=== PATIENT | female | born 1995 | race Two or more races ===

== ENCOUNTER 2016-10-08 21:02 | Emergency (ER) | payer SELFPAY ==
[~2016-10-08] VITALS: Ht 170.2 cm; Wt 77.1 kg
[2016-10-08 21:08] VITALS: BP 116/78
== END 2016-10-08 21:48 | disposition home or self-care (01) ==
LOC: ER 21:04
DX: S06.0X0A Concussion without loss of consciousness, initial encounter (principal); S40.011A Contusion of right shoulder, initial encounter; V43.62XA Car passenger injured in collision with other type car in traffic accident, initial encounter; Y93.89 Activity, other specified; Y92.488 Other paved roadways as the place of occurrence of the external cause; Y99.8 Other external cause status
CPT/HCPCS: 99283; A4606; Z7610

== ENCOUNTER 2020-11-26 15:05 | Emergency (ER) | payer OTHER ==
[~2020-11-26] VITALS: Ht 167.6 cm; Wt 81.6 kg
[2020-11-26 15:07] VITALS: BP 134/86
--- NOTE | 2020-11-26 15:22 | NUR ---
CALLED DR. MIRANDA [phone] SPEAKING WITH GARRET
[2020-11-26] MEDS ORDERED: MORPHINE SULFATE INJ 2 MG/ML DISP.SYRIN IM ONE (15:30)
[2020-11-26] MEDS ORDERED: ONDANSETRON HCL/PF 4 MG/2 ML VIAL IM ONE (15:30)
[2020-11-26] MEDS ORDERED: ONDANSETRON HCL/PF 4 MG/2 ML VIAL ONE (15:34)
[2020-11-26] MEDS ORDERED: MORPHINE SULFATE INJ 4 MG/ML DISP.SYRIN ONE (15:34)
[2020-11-26] MEDS ORDERED: AMOX/CLAVULANATE 875 MG TABLET PO ONE (16:00)
[2020-11-26] MEDS ORDERED: AMOX/CLAVULANATE 875 MG TABLET ONE (16:18)
== END 2020-11-26 16:32 | disposition home or self-care (01) ==
LOC: ER 15:12
DX: K13.79 Other lesions of oral mucosa (principal)
CPT/HCPCS: 96372 ×2; 99284; J2270; J2405

== ENCOUNTER 2020-12-01 19:58 | Emergency (ER) | payer OTHER ==
[~2020-12-01] VITALS: Ht 167.6 cm; Wt 77.6 kg
[2020-12-01 19:58] VITALS: BP 125/76
[2020-12-01] MEDS ORDERED: MAGNESIUM HYDROXIDE 30 ML UDC ONE (20:58)
[2020-12-01] MEDS ORDERED: NA PHOS,M-B/NA PHOS,DI-BA 1 EA ENEMA RC ONE (20:58)
[2020-12-01] MEDS: MAGNESIUM HYDROXIDE 30 ML UDC PO ONE (21:01)
[2020-12-01] MEDS: NA PHOS,M-B/NA PHOS,DI-BA 1 EA ENEMA RC ONE (21:15)
== END 2020-12-01 21:45 | disposition home or self-care (01) ==
LOC: ER 19:58
DX: K59.00 Constipation, unspecified (principal); R10.84 Generalized abdominal pain; K64.4 Residual hemorrhoidal skin tags